=== PATIENT | female | born 1975 | race Caucasian/White ===

== ENCOUNTER 2016-08-06 12:51 | Day surgery (SDC) | payer BC ==
--- NOTE | ~2016-08-06 | EGD ---
EGD REPORT [facility] [address] [address] NAME: LORY VALENZUELA : [birth year] STATUS : REG [facility]#: [id number] AGE: 41 ADM/REG DATE : 08/06/16 MR#: [id number] REPORT SERV DATE: 08/06/16 DICTATED BY: JEZ BERMUDEZ DATE: 08/06/16 REPORT STATUS : Draft [facility]: [facility] DATE: 08/06/16 Endoscopy Center Patient Name: Lory Valenzuela Date of : 1975 Attending MD: JEZ BERMUDEZ MD Procedure Date No Time: 08/06/2016 Procedure: Upper GI endoscopy Indications: Gastro-esophageal reflux disease, Diarrhea Referring MD: Mildred Ocampo Medicines: See the Anesthesia note for documentation of the administered medications Complications: No immediate complications. Procedure: Pre-Anesthesia Assessment: - ASA Grade Assessment: III - A patient with severe systemic disease. After obtaining informed consent, the endoscope was passed under direct vision. Throughout the procedure, the patient's blood pressure, pulse, and oxygen saturations were monitored continuously. The GIF H190 [id number] was introduced through the mouth, and advanced to the second part of duodenum. The upper GI endoscopy was accomplished without difficulty. The patient tolerated the procedure well. Findings: The 2nd part of the duodenum was normal. Mild inflammation was found in the gastric antrum. Biopsies were taken with a cold forceps for histology. The cardia and gastric fundus were normal on retroflexion. A small hiatus hernia was present. Impression: - Normal 2nd part of the duodenum. - Gastritis. Biopsied. - Hiatus hernia. Recommendation: - Patient has a contact number available for emergencies. The signs and symptoms of potential delayed complications were discussed with the patient. Return to normal activities tomorrow. Written discharge instructions were provided to the patient. - Regular diet. - Continue present medications. - FOR YOUR BIOPSY RESULTS: Please go to [email or web address] and register to receive your results via the portal. Your biopsy results will be EGD REPORT [address] [address] NAME: LORY VALENZUELA : [birth year] [place]US [place] [facility] [place] [id number] AGE: 41 ADM/REG DATE : 08/06/16 MR#: [id number] REPORT SERV DATE: 08/06/16 DICTATED BY: JEZ BERMUDEZ DATE: 08/06/16 REPORT STATUS : Draft TRANSCRIBED BY: [employer] DATE: 08/06/16 posted there in about 7 to 10 days. IF you do not see result in 10 days, call office. Procedure Code(s): --- Professional --- 74169, Esophagogastroduodenoscopy, flexible, transoral; with biopsy, single or multiple Diagnosis Code(s): --- Professional --- K29.70, Gastritis, unspecified, without bleeding K44.9, Diaphragmatic hernia without obstruction or gangrene K21.9, Gastro-esophageal reflux disease without esophagitis R19.7, Diarrhea, unspecified CPT copyright 2013 [employer]. All rights reserved. The codes documented in this report are preliminary and upon gear tooth grinding machine operator review may be revised to meet current compliance requirements. Jez Bermudez MD JEZ BERMUDEZ MD 08/06/2016 2:10 PM This report has been signed electronically. Number of Addenda: 0 Note Initiated On: 08/06/2016 1:53 PM Scope Withdrawal Time 0 hours 0 minutes 0 seconds [id number] [place] [address]
--- NOTE | ~2016-08-06 | EGD ---
EGD REPORT [facility] [address] [address] NAME: LORY VALENZUELA : [birth year] STATUS : REG [facility]#: [id number] AGE: 41 ADM/REG DATE : 08/06/16 MR#: [id number] REPORT SERV DATE: 08/06/16 DICTATED BY: JEZ BERMUDEZ DATE: 08/06/16 REPORT STATUS : Draft [facility]: [facility] DATE: 08/06/16 Endoscopy Center Patient Name: Lory Valenzuela Date of : 1975 Attending MD: JEZ BERMUDEZ MD Procedure Date No Time: 08/06/2016 Procedure: Upper GI endoscopy Indications: Gastro-esophageal reflux disease, Diarrhea Referring MD: Mildred Ocampo Medicines: See the Anesthesia note for documentation of the administered medications Complications: No immediate complications. Procedure: Pre-Anesthesia Assessment: - ASA Grade Assessment: III - A patient with severe systemic disease. After obtaining informed consent, the endoscope was passed under direct vision. Throughout the procedure, the patient's blood pressure, pulse, and oxygen saturations were monitored continuously. The GIF H190 [id number] was introduced through the mouth, and advanced to the second part of duodenum. The upper GI endoscopy was accomplished without difficulty. The patient tolerated the procedure well. Findings: The 2nd part of the duodenum was normal. Mild inflammation was found in the gastric antrum. Biopsies were taken with a cold forceps for histology. The cardia and gastric fundus were normal on retroflexion. A small hiatus hernia was present. Impression: - Normal 2nd part of the duodenum. - Gastritis. Biopsied. - Hiatus hernia. Recommendation: - Patient has a contact number available for emergencies. The signs and symptoms of potential delayed complications were discussed with the patient. Return to normal activities tomorrow. Written discharge instructions were provided to the patient. - Regular diet. - Continue present medications. - FOR YOUR BIOPSY RESULTS: Please go to [email or web address] and register to receive your results via the portal. Your biopsy results will be EGD REPORT [address] [address] NAME: LORY VALENZUELA : [birth year] STATUS : REG [facility] PAT#: [id number] AGE: 41 ADM/REG DATE : 08/06/16 MR#: [id number] REPORT SERV DATE: 08/06/16 DICTATED BY: JEZ BERMUDEZ DATE: 08/06/16 REPORT STATUS : Draft TRANSCRIBED BY: [employer] DATE: 08/06/16 posted there in about 7 to 10 days. IF you do not see result in 10 days, call office. Procedure Code(s): --- Professional --- 84662, Esophagogastroduodenoscopy, flexible, transoral; with biopsy, single or multiple Diagnosis Code(s): --- Professional --- K29.70, Gastritis, unspecified, without bleeding K44.9, Diaphragmatic hernia without obstruction or gangrene K21.9, Gastro-esophageal reflux disease without esophagitis R19.7, Diarrhea, unspecified CPT copyright 2013 [employer]. All rights reserved. The codes documented in this report are preliminary and upon lieutenant fire fighter review may be revised to meet current compliance requirements. Jez Bermudez MD JEZ BERMUDEZ MD 08/06/2016 2:10 PM This report has been signed electronically. Number of Addenda: 0 Note Initiated On: 08/06/2016 1:53 PM Scope Withdrawal Time 0 hours 0 minutes 0 seconds [id number] [place] [address]
--- NOTE | ~2016-08-06 | EGD ---
EGD REPORT [facility] [address] [address] NAME: LORY VALENZUELA : [birth year] STATUS : REG [facility]#: [id number] AGE: 41 ADM/REG DATE : 08/06/16 MR#: [id number] REPORT SERV DATE: 08/06/16 DICTATED BY: DATE: REPORT STATUS : Draft TRANSCRIBED BY: [facility] DATE: 08/06/16 Endoscopy Center Patient Name: Lory Valenzuela Date of : 1975 Attending MD: JEZ BERMUDEZ MD Procedure Date No Time: 08/06/2016 Procedure: Colonoscopy Indications: Diarrhea, Last colonoscopy: date unknown Referring MD: Mildred Ocampo Medicines: See the Anesthesia note for documentation of the administered medications Complications: No immediate complications. Procedure: Pre-Anesthesia Assessment: - ASA Grade Assessment: III - A patient with severe systemic disease. After I obtained informed consent, the scope was passed under direct vision. Throughout the procedure, the patient's blood pressure, pulse, and oxygen saturations were monitored continuously. The CF [id number] was introduced through the anus and advanced to the terminal ileum, with identification of the appendiceal orifice and IC valve. The colonoscopy was performed without difficulty. The patient tolerated the procedure well. The quality of the bowel preparation was adequate. Findings: The perianal and digital rectal examinations were normal. The terminal ileum appeared normal. Internal hemorrhoids were found during retroflexion and were small. Normal mucosa was found in the ascending colon. Biopsies were taken with a cold forceps for histology. Normal mucosa was found in the rectum. Biopsies were taken with a cold forceps for histology. Impression: - The examined portion of the ileum was normal. - Internal hemorrhoids. - Normal mucosa in the ascending colon. Biopsied. - Normal mucosa in the rectum. Biopsied. Recommendation: - Patient has a contact number available for emergencies. The signs and symptoms of potential delayed complications were discussed with the patient. Return to normal activities tomorrow. Written discharge instructions were provided to the patient. - Regular diet. EGD REPORT [address] [address] NAME: LORY VALENZUELA : [birth year] [place] [facility]#: [id number] AGE: 41 ADM/REG DATE : 08/06/16 MR#: [id number] REPORT SERV DATE: 08/06/16 DICTATED BY: DATE: REPORT STATUS : Draft TRANSCRIBED BY: [email or web address] DATE: 08/06/16 - Continue present medications. - Repeat colonoscopy for surveillance based on pathology results. - FOR YOUR BIOPSY RESULTS: Please go to [email or web address] and register to receive your results via the portal. Your biopsy results will be posted there in about 7 to 10 days. IF you do not see result in 10 days, call office. - Return to my office in 6 weeks. Procedure Code(s): --- Professional --- 18711, Colonoscopy, flexible, proximal to splenic flexure; with biopsy, single or multiple Diagnosis Code(s): --- Professional --- K64.8, Other hemorrhoids R19.7, Diarrhea, unspecified CPT copyright 2013 [employer]. All rights reserved. The codes documented in this report are preliminary and upon laundry operator review may be revised to meet current compliance requirements. Jez Bermudez MD JEZ BERMUDEZ MD 08/06/2016 2:23 PM This report has been signed electronically. Number of Addenda: 0 Note Initiated On: 08/06/2016 1:51 PM Scope Withdrawal Time 0 hours 7 minutes 41 seconds [address] [address]
[~2016-08-06 12:51] MED LIST: COZ50 PO; MULTIPLE VIT PO; NORCO1 TA2 PO; P5 PO; PLAQ200B PO; PROBIOTIC; PROTONIX PO; TRAZ50 PO; VITAMIN D1000 UNI1 PO; XANAX1 MG PO
== END 2016-08-06 23:59 | disposition home or self-care (01) ==
LOC: DMU 12:51
PROVIDERS: Internal Medicine Gastroenterology
PROC: 0DB98ZX Excision of Duodenum, Via Natural or Artificial Opening Endoscopic, Diagnostic (ICD-10-PCS; 2016-08-06)
PROC: 0DB68ZX Excision of Stomach, Via Natural or Artificial Opening Endoscopic, Diagnostic (ICD-10-PCS; 2016-08-06)
PROC: 0DBP8ZX Excision of Rectum, Via Natural or Artificial Opening Endoscopic, Diagnostic (ICD-10-PCS; principal; 2016-08-06 14:30)
PROC: 0DBK8ZX Excision of Ascending Colon, Via Natural or Artificial Opening Endoscopic, Diagnostic (ICD-10-PCS; 2016-08-06 14:30)
DX: K64.8 Other hemorrhoids (principal); K29.50 Unspecified chronic gastritis without bleeding; K44.9 Diaphragmatic hernia without obstruction or gangrene; K21.9 Gastro-esophageal reflux disease without esophagitis; E66.01 Morbid (severe) obesity due to excess calories; I10 Essential (primary) hypertension; M19.90 Unspecified osteoarthritis, unspecified site; F41.9 Anxiety disorder, unspecified; Z88.1 Allergy status to other antibiotic agents; Z90.49 Acquired absence of other specified parts of digestive tract
CPT/HCPCS: 84703; 88305